=== PATIENT | male | born 1940 | race Hispanic/Latino ===

== ENCOUNTER 2018-10-11 10:09 | Inpatient (IN) | payer MEDICARE, OTHER ==
--- NOTE | 2018-10-11 11:03 | Emergency Department Report ---
ED Shortness of Breath HPI - General Chief Complaint: Dyspnea/Respdistress Stated Complaint: SENT BY Time Seen by Provider: 10/11/18 10:42 Source: patient, family, RN notes reviewed Mode of arrival: Ambulatory Limitations: No Limitations - History of Present Illness Initial Comments: 78-year-old male with no significant past medical history presents to the hospital for shortness of breath 1.5-2 months. Patient went to [place] event marketing specialist office for the first time today with these symptoms and was subsequently sent to the ER for admission for right pleural effusion and cardiac workup. Patient complains of occasional cough productive of clear sputum. He denies chest pain, fevers, smoking history, or unintentional weight loss. His primary care doctors affiliated with the [facility]. Patient was sent to the ER by Dr. Mccray, see his note. - Related Data Allergies Allergy/AdvReac Type Severity Reaction Status Date / Time No Known Allergies Allergy Verified 10/11/18 10:29 ED Review of Systems ROS: Stated complaint: SENT BY Other details as noted in HPI Comment: All other systems reviewed and negative ED Past Medical Hx - Past Medical History Previous Medical History?: No - Surgical History Past Surgical History?: No - Social History Smoking Status: Never Smoker Substance Use Type: Alcohol ED Physical Exam - General Limitations: No Limitations - Other Other exam information: General: No limitations, patient is alert in no acute distress Head exam: Atraumatic, normocephalic Eyes exam: Normal appearance ENT: Moist mucous membrane Neck exam: Normal inspection, full range of motion, no meningismus nontender Respiratory exam: Diminished breath sounds right base, no wheezes, rales, or crackles Cardiovascular: Normal rate and rhythm, diastolic murmur Abdomen: Soft, nondistended, and nontender, with normal bowel sounds, no reboun d, or guarding Extremity: Full range of motion normal inspection no deformity, bilateral 1+ pitting edema lower extremity Back: Normal Inspection, full range of motion, no tenderness Neurologic: Alert, oriented x3, cranial nerves intact, no motor or sensory deficit Psychiatric: normal affect, normal mood Skin: Warm, dry, intact ED Course Vital Signs 10/11/18 10/11/18 10:29 11:02 Temperature 97.7 F Pulse Rate 103 H 106 H Respiratory 16 17 Rate Blood Pressure 136/86 146/93 O2 Sat by Pulse 96 96 Oximetry ED Medical Decision Making - Lab Data Result diagrams: 10/11/18 10:53 10/11/18 10:53 Lab Results 10/11/18 10/11/18 10/11/18 Range/Units 10:53 10:53 10:53 WBC 7.4 (4.5-11.0) K/mm3 RBC 3.72 (3.65-5.03) M/mm3 Hgb 8.9 L (11.8-15.2) gm/dl Hct 29.3 L (35.5-45.6) % MCV 79 L (84-94) fl MCH 24 L (28-32) pg MCHC 30 L (32-34) % RDW 17.5 H (13.2-15.2) % Plt Count 320 (140-440) K/mm3 Lymph % (Auto) 15.4 (13.4-35.0) % [place] % (Auto) 10.3 H (0.0-7.3) % Eos % (Auto) 1.3 (0.0-4.3) % Baso % (Auto) 1.1 (0.0-1.8) % Lymph # 1.1 L (1.2-5.4) K/mm3 [place] # 0.8 (0.0-0.8) K/mm3 Eos # 0.1 (0.0-0.4) K/mm3 Baso # 0.1 (0.0-0.1) K/mm3 Seg Neutrophils % 71.9 H (40.0-70.0) % Seg Neutrophils # 5.4 (1.8-7.7) K/mm3 PT 15.5 H (12.2-14.9) Sec. INR 1.16 H (0.87-1.13) APTT 32.4 (24.2-36.6) Sec. Sodium 141 (137-145) mmol/L Potassium 4.8 (3.6-5.0) mmol/L Chloride 107.2 H (98-107) mmol/L Carbon Dioxide 21 L (22-30) mmol/L Anion Gap 18 mmol/L BUN 18 (9-20) mg/dL Creatinine 1.1 (0.8-1.5) mg/dL Estimated GFR > 60 ml/min BUN/Creatinine Ratio 16 % Glucose 116 H (75-100) mg/dL Calcium 8.6 (8.4-10.2) mg/dL Total Bilirubin 0.70 (0.1-1.2) mg/dL AST 14 (5-40) units/L ALT 11 (7-56) units/L Alkaline Phosphatase 91 (35-129) units/L Total Creatine Kinase 76 (55-170) units/L CK-MB (CK-2) 2.3 (0.0-4.0) ng/mL CK-MB (CK-2) Rel Index 3.0 (0-4) Troponin T < 0.010 (0.00-0.029) ng/mL Total Protein 6.6 (6.3-8.2) g/dL Albumin 3.7 L (3.9-5) g/dL Albumin/Globulin Ratio 1.3 % TSH (0.270-4.200) mlU/mL Free T4 (0.76-1.46) ng/dL 10/11/18 Range/Units 10:53 WBC (4.5-11.0) K/mm3 RBC (3.65-5.03) M/mm3 Hgb (11.8-15.2) gm/dl Hct (35.5-45.6) % MCV (84-94) fl MCH (28-32) pg MCHC (32-34) % RDW (13.2-15.2) % Plt Count (140-440) K/mm3 Lymph % (Auto) (13.4-35.0) % [place] % (Auto) (0.0-7.3) % Eos % (Auto) (0.0-4.3) % Baso % (Auto) (0.0-1.8) % Lymph # (1.2-5.4) K/mm3 [place] # (0.0-0.8) K/mm3 Eos # (0.0-0.4) K/mm3 Baso # (0.0-0.1) K/mm3 Seg Neutrophils % (40.0-70.0) % Seg Neutrophils # (1.8-7.7) K/mm3 PT (12.2-14.9) Sec. INR (0.87-1.13) APTT (24.2-36.6) Sec. Sodium (137-145) mmol/L Potassium (3.6-5.0) mmol/L Chloride (98-107) mmol/L Carbon Dioxide (22-30) mmol/L Anion Gap mmol/L BUN (9-20) mg/dL Creatinine (0.8-1.5) mg/dL Estimated GFR ml/min BUN/Creatinine Ratio % Glucose (75-100) mg/dL Calcium (8.4-10.2) mg/dL Total Bilirubin (0.1-1.2) mg/dL AST (5-40) units/L ALT (7-56) units/L Alkaline Phosphatase (35-129) units/L Total Creatine Kinase (55-170) units/L CK-MB (CK-2) (0.0-4.0) ng/mL CK-MB (CK-2) Rel Index (0-4) Troponin T (0.00-0.029) ng/mL Total Protein (6.3-8.2) g/dL Albumin (3.9-5) g/dL Albumin/Globulin Ratio % TSH 1.630 (0.270-4.200) mlU/mL Free T4 1.37 (0.76-1.46) ng/dL - EKG Data -: EKG Interpreted by Mi EKG shows normal: sinus rhythm, axis (qrs 89), QRS complexes (qrsd 150), ST-T waves (right bundle-branch block, no ST elevation IN.) Rate: normal (99) - EKG Data When compared to previous EKG there are: previous EKG unavailable - Radiology Data Radiology results: report reviewed ROUTINE CHEST, TWO VIEWS: HISTORY: Shortness of breath. Mild cardiomegaly, small right pleural effusion and trace left pleural effusion are identified. The lungs are grossly clear otherwise. No pneumothorax. The bony structures are grossly intact. IMPRESSION: Mild CHF. - Medical Decision Making new right pleural effusion pt will be admitted for workup card consult ordered - Differential Diagnosis cancer, CHF, lung disease Critical Care Time: No Critical care attestation.: If time is entered above; I have spent that time in minutes in the direct care of this critically ill patient, excluding procedure time. ED Disposition Clinical Impression: Dyspnea, Pleural effusion on right, Anemia Disposition: OP ADMIT IP TO THIS HOSP Is pt being admited?: Yes Condition: Stable Time of Disposition: 11:52 (Dr Torres/hosp)
[2018-10-11 11:16] LABS: Basophils # (Auto) 0.1 K/mm3 (0.0-0.1); Basophils % (Auto) 1.1 % (0.0-1.8); Eosinophils # (Auto) 0.1 K/mm3 (0.0-0.4); Eosinophils % (Auto) 1.3 % (0.0-4.3); Hematocrit 29.3 % (35.5-45.6); Hemoglobin 8.9 gm/dl (11.8-15.2); Lymphocytes # (Auto) 1.1 K/mm3 (1.2-5.4); Lymphocytes % (Auto) 15.4 % (13.4-35.0); Mean Corpuscular HGB Conc 30 % (32-34); Mean Corpuscular Volume 79 fl (84-94); Monocytes # (Auto) 0.8 K/mm3 (0.0-0.8); Monocytes % (Auto) 10.3 % (0.0-7.3); Platelet Count 320 K/mm3 (140-440); Red Blood Count 3.72 M/mm3 (3.65-5.03); Red Cell Distribution Width 17.5 % (13.2-15.2)
[2018-10-11 11:24] LABS: INR 1.16 (0.87-1.13); Partial Thromboplastin Time 32.4 Sec. (24.2-36.6)
[2018-10-11 11:28] LABS: Creatine Kinase MB 2.3 ng/mL (0.0-4.0)
[2018-10-11 11:29] LABS: Alanine Aminotransferase 11 units/L (7-56); Albumin 3.7 g/dL (3.9-5); BUN/Creatinine Ratio 16; Blood Urea Nitrogen 18 mg/dL (9-20); Calcium 8.6 mg/dL (8.4-10.2); Hemolysis Index 7
--- NOTE | 2018-10-11 11:29 | XRay Report ---
ROUTINE CHEST, TWO VIEWS: HISTORY: Shortness of breath. Mild cardiomegaly, small right pleural effusion and trace left pleural effusion are identified. The lungs are grossly clear otherwise. No pneumothorax. The bony structures are grossly intact. IMPRESSION: Mild CHF.
[2018-10-11 11:45] LABS: Free T4 (Free Thyroxine) 1.37 ng/dL (0.76-1.46)
--- NOTE | 2018-10-11 12:49 | History and Physical Report ---
History of Present Illness Chief complaint: i cant breathe, and im just weak History of present illness: 78 YO Male with Obesity and No PMH presents to ED for evaluation. Pt states that he has experienced shortness of breath over the past 2 months with increasing symptoms over the past 1 week. Pt acknowledges Orthopnea/PND, Decreased exercise tolerance, leg edema, Dypsnea on exertion, Dypsnea at rest. Pt was seen and evaluated in his [facility]'s office today, and was instructed to seek further care at [facility]. Pt seen and evaluated in ED and found to have symptoms consistent with CHF Decompensation, and well as Pleural Effusion. Pt admitted to telemetry, and initiated on CHF protocol. Cardiology consulted in ED. Pt denies fever, chills, CP, Palpitations, NVD, Trauma, Unilateral leg swelling, hemoptysis, prolonged travel/immobility, individual/family history of DVT/PE/Blood Clotting Disorders. No previous Admission. No Previous medication to reconcile. Past History Past Medical History: No medical history, other (reviewed) Past Surgical History: No surgical history, Other (reviewed) Social history: single Family history: no significant family history (reviewed) Medications and Allergies Allergies Allergy/AdvReac Type Severity Reaction Status Date / Time No Known Allergies Allergy Verified 10/11/18 12:56 Home Medications Medication Instructions Recorded Confirmed Last Taken Type No Known Home Medications [No 10/11/18 10/11/18 Unknown History Reported Home Medications] Review of Systems Constitutional: no weight loss, no weight gain, no fever, no chills Ears, nose, mouth and throat: no ear pain, no ear discharge, no tinnitis, no decreased hearing, no nose pain, no nasal congestion Cardiovascular: orthopnea, shortness of breath, dyspnea on exertion, paroxysmal nocturnal dyspnea, leg edema, decreased exercise tolerance, no chest pain, no palpitations, no rapid/irregular heart beat Respiratory: no cough, no cough with sputum, no excessive sputum, no hemoptysis Gastrointestinal: no nausea, no vomiting, no diarrhea, no constipation Genitourinary Male: no hematuria, no flank pain, no discharge, no urinary frequency, no urinary hesitancy Rectal: no pain, no incontinence, no bleeding Musculoskeletal: no neck pain, no shooting arm pain, no arm numbness/tingling, no low back pain, no shooting leg pain Integumentary: no rash, no pruritis, no redness, no sores, no wounds Neurological: no transient paralysis, no paralysis, no weakness, no parathesias, no numbness, no tingling Psychiatric: no anxiety, no memory loss, no change in sleep habits, no sleep disturbances, no insomnia, no hypersomnia Endocrine: no cold intolerance, no heat intolerance, no polyphagia, no excessive thirst, no polydipsia Hematologic/Lymphatic: no easy bruising, no easy bleeding Allergic/Immunologic: no urticaria, no allergic rhinitis, no wheezing Exam - Constitutional Vitals: Temp Pulse Resp BP Pulse Ox 97.7 F 106 H 20 146/93 98 10/11/18 10:29 10/11/18 11:02 10/11/18 11:02 10/11/18 11:02 10/11/18 11:02 General appearance: Present: mild distress - EENT Eyes: Present: PERRL ENT: hearing intact, clear oral mucosa - Neck Neck: Present: supple, normal ROM - Respiratory Respiratory effort: normal Respiratory: bilateral: diminished, rhonchi - Cardiovascular Heart Sounds: Present: S1 & S2. Absent: rub, click - Extremities Extremity abnormal: edema Peripheral Pulses: within normal limits - Abdominal General gastrointestinal: Present: soft, non-tender, non-distended, normal bowel sounds Male genitourinary: Present: normal - Integumentary Integumentary: Present: clear, warm, dry - Musculoskeletal Musculoskeletal: gait normal, strength equal bilaterally - Psychiatric Psychiatric: appropriate mood/affect, intact judgment & insight - Neurologic Neurologic: CNII-XII intact, moves all extremities Results - Labs CBC & Chem 7: 10/11/18 10:53 10/11/18 10:53 Labs: Abnormal lab results 10/11/18 10/11/18 10/11/18 Range/Units 10:53 10:53 10:53 Hgb 8.9 L (11.8-15.2) gm/dl Hct 29.3 L (35.5-45.6) % MCV 79 L (84-94) fl MCH 24 L (28-32) pg MCHC 30 L (32-34) % RDW 17.5 H (13.2-15.2) % [place] % (Auto) 10.3 H (0.0-7.3) % Lymph # 1.1 L (1.2-5.4) K/mm3 Seg Neutrophils % 71.9 H (40.0-70.0) % PT 15.5 H (12.2-14.9) Sec. INR 1.16 H (0.87-1.13) Chloride 107.2 H (98-107) mmol/L Carbon Dioxide 21 L (22-30) mmol/L Glucose 116 H (75-100) mg/dL Albumin 3.7 L (3.9-5) g/dL Assessment and Plan - Patient Problems (1) CHF (congestive heart failure) Current Visit: Yes Status: Acute Qualifiers: Heart failure type: systolic Heart failure chronicity: acute Qualified Code(s): I50.21 - Acute systolic (congestive) heart failure Plan to address problem: Admit to Telemetry: CHF Protocol: Strict I/O, BNP, D dimer, CTA Chest, daily weight, diuresis, chest x ray, serial cardiac enzymes, serial ekg, thyroid pane l, monitor uop q shift, afterload reduction, cardiology consulted in ED. (2) Crohns disease Current Visit: Yes Status: Acute Qualifiers: Digestive disease complication type: without complication Plan to address problem: No active symptoms at this time, Pt not currently taking medication. (3) Agitation Current Visit: Yes Status: Acute Plan to address problem: Ativan prn, supportive care. (4) Pleural effusion on right Current Visit: Yes Status: Acute Plan to address problem: Diuresis, CT chest, Right lateral decubitus chest x ray in AM to monitor for improvement with diuresis, and treatment of CHF. (5) DVT prophylaxis Current Visit: Yes Status: Acute Plan to address problem: SCD to BLE while in bed.
[2018-10-11] MEDS ORDERED: PROVENTIL IH PRN (12:52)
[2018-10-11] MEDS ORDERED: SODIUM CHLORIDE FLUSH SYRINGE 10 ML IV PRN ×2 (12:52)
[2018-10-11] MEDS ORDERED: MORPHINE IV PRN (12:52)
[2018-10-11] MEDS ORDERED: BABY ASPIRIN PO STA (12:52)
[2018-10-11] MEDS ORDERED: NITROSTAT SL PRN (12:52)
[2018-10-11] MEDS ORDERED: TYLENOL PO PRN (12:52)
[2018-10-11] MEDS ORDERED: ZOFRAN IV PRN (12:52)
[2018-10-11 13:29] LABS: Chol/HDL Ratio 3.75 %
--- NOTE | 2018-10-11 14:24 | Event Note ---
Date: 10/11/18 See office note for consult details. Patient is admitted with SOB, Echo in office shows a severe dilated CM, EF 20%, at least mild-moderate . Chest XRay and BNP levels consistent with decompensated HF. A small L pleural effusion is probably due to HF. Recommendation: Diurese, afterload reduction, ASA, betablockers when HF compensated. Right/Left heart cath Sunday.
--- NOTE | 2018-10-11 17:24 | Cat Scan Report ---
PROCEDURE: CT angiogram chest with contrast. TECHNIQUE: Computerized tomographic angiography of the chest was performed after the IV injection of iodinated nonionic contrast including image processing. The image data was postprocessed using 2-di mensional multiplanar reformatted (MPR) and 3-dimensional (MIP and/or volume rendered) techniques. Au tomated exposure control, adjustment of mA and/or kV according to patient size, or iterative reconstr uction dose optimization techniques were utilized. CT DOSE LENGTH PRODUCT: Not provided mGycm HISTORY: Chest pain. COMPARISONS: None. FINDINGS: The trachea and central bronchi appear normal. There is a small amount of compressive subsegmental at electasis in the dependent portions of both lower lobes. The lungs are otherwise clear and well expan ded. There is a large right pleural effusion and a moderate size left pleural effusion. The thoracic aorta has a normal caliber without evidence of dissection. There is some atherosclerotic calcificatio n scattered in the thoracic aorta. The pulmonary arteries enhance normally. There are no filling defe cts to indicate pulmonary embolism. There is no mediastinal adenopathy. The heart size is normal. The adrenal glands are not enlarged. The thoracic skeleton appears intact. There is a moderate sized hia yusra hernia. IMPRESSION: No evidence of pulmonary embolism. Large right pleural effusion and moderate-sized left pleural effusion. Hiatal hernia. This document is electronically signed by Emmanuel Parod MD., October 11 2018 05:22:06 PM ET
[2018-10-11] MEDS: NITRO-BID 2% TP SCH (17:50)
[2018-10-11] MEDS: LASIX IV SCH (17:50)
[2018-10-11] MEDS: ZESTRIL PO SCH (18:07)
[2018-10-11] MEDS: ALDACTONE PO SCH (18:07)
[2018-10-11] MEDS ORDERED: ATIVAN IV ONE (21:03)
[2018-10-11] MEDS ORDERED: ATIVAN PO PRN (21:05)
[2018-10-11] MEDS: SODIUM CHLORIDE FLUSH SYRINGE 10 ML IV SCH (22:52)
[2018-10-12] MEDS: LASIX IV SCH ×2 (05:59→17:51)
[2018-10-12] MEDS: NITRO-BID 2% TP SCH ×4 (06:00→17:51)
[2018-10-12 06:17] LABS: BUN/Creatinine Ratio 15; Blood Urea Nitrogen 17 mg/dL (9-20); Calcium 8.4 mg/dL (8.4-10.2); Hemolysis Index 1
[2018-10-12] MEDS: ALDACTONE PO SCH (09:49)
[2018-10-12] MEDS: COREG PO SCH ×2 (09:50→21:49)
[2018-10-12] MEDS: BABY ASPIRIN PO SCH (09:50)
[2018-10-12] MEDS: ZESTRIL PO SCH (09:56)
[2018-10-12] MEDS: SODIUM CHLORIDE FLUSH SYRINGE 10 ML IV SCH ×2 (09:56→21:49)
--- NOTE | 2018-10-12 10:06 | XRay Report ---
PROCEDURE: XR CHEST 1V AP TECHNIQUE: Chest radiograph, portable AP view. HISTORY: pleural effusion COMPARISONS: None currently available. FINDINGS: Mild cardiomegaly. Aortic calcifications. Prominent bilateral pulmonary markings with perihilar airspace opacities. Slightly blunted bilateral costophrenic angles. Ill-defined opacity in the right infrahilar region and left lower lobe. No pneum othorax. There are no suspicious osseous lesions. IMPRESSION: * Cardiomegaly and pulmonary findings suggest pulmonary vascular congestion with edema particularly in the right middle and left lower lobes. Differential diagnosis includes pneumonia and acute pneumon itis. * Small to moderate bilateral pleural effusions. This document is electronically signed by Kevin Keller MD., October 12 2018 10:04:33 AM ET
--- NOTE | 2018-10-12 10:53 | Progress Note ---
Assessment and Plan 1. Acute systolic heart failure. 2. Dilated cardiomyopathy left ventricular ejection fraction of 20% 3. Moderate aortic stenosis [caution of over estimation of aortic stenosis secondary to low stroke for] Plan. Currently stable scheduled for a right and left heart cath on Sunday Subjective Date of service: 10/12/18 Interval history: No cardiac symptoms Objective Vital Signs Temp Pulse Resp BP BP Pulse Ox 10/12/18 09:33 125/76 10/12/18 06:00 101 H 131/87 10/12/18 04:52 88 10/12/18 04:22 98.1 F 101 H 18 131/87 92 10/11/18 23:49 98.2 F 96 H 18 118/74 99 10/11/18 23:05 108 H 10/11/18 19:44 98.1 F 104 H 18 114/76 99 10/11/18 17:19 98 H 118/67 10/11/18 16:21 100 H 20 133/80 98 10/11/18 16:11 109 H 23 133/80 88 10/11/18 16:01 103 H 25 H 133/80 96 10/11/18 15:01 101 H 12 133/80 97 10/11/18 14:00 103 H 18 133/80 99 10/11/18 13:00 95 H 11 L 125/86 96 10/11/18 12:00 94 H 26 H 133/90 97 10/11/18 11:02 106 H 17 146/93 96 - Physical Examination General: Appears Well, No Apparent Distress HEENT: Positive: PERRL, Mucus Membranes Moist Neck: Positive: neck supple, trachea midline. Negative: JVD/HJR Cardiac: Positive: Regular Rate, S1/S2, S3, Systolic Murmur, PMI, Dilated, Laterally Displaced Lungs: Positive: clear to auscultation, No Wheeze, Rales, Rhonchi Neuro: Positive: Grossly Intact Abdomen: Positive: Unremarkable, Soft Extremities: Absent: edema - Labs and Meds Cardiac Enzymes 10/11/18 Range/Units 10:53 AST 14 (5-40) units/L CK-MB (CK-2) 2.3 (0.0-4.0) ng/mL Coagulation 10/11/18 Range/Units 10:53 PT 15.5 H (12.2-14.9) Sec. INR 1.16 H (0.87-1.13) APTT 32.4 (24.2-36.6) Sec. Lipids 10/11/18 Range/Units 10:53 Triglycerides 64 (2-149) mg/dL Cholesterol 109 (50-199) mg/dL HDL Cholesterol 29 L (40-59) mg/dL Cholesterol/HDL Ratio 3.75 % CBC 10/11/18 Range/Units 10:53 WBC 7.4 (4.5-11.0) K/mm3 RBC 3.72 (3.65-5.03) M/mm3 Hgb 8.9 L (11.8-15.2) gm/dl Hct 29.3 L (35.5-45.6) % Plt Count 320 (140-440) K/mm3 Lymph # 1.1 L (1.2-5.4) K/mm3 [place] # 0.8 (0.0-0.8) K/mm3 Eos # 0.1 (0.0-0.4) K/mm3 Baso # 0.1 (0.0-0.1) K/mm3 Comprehensive Metabolic Panel 10/11/18 10/12/18 Range/Units 10:53 04:39 Sodium 141 141 (137-145) mmol/L Potassium 4.8 4.0 (3.6-5.0) mmol/L Chloride 107.2 H 106.0 (98-107) mmol/L Carbon Dioxide 21 L 22 (22-30) mmol/L BUN 18 17 (9-20) mg/dL Creatinine 1.1 1.1 (0.8-1.5) mg/dL Glucose 116 H 94 (75-100) mg/dL Calcium 8.6 8.4 (8.4-10.2) mg/dL AST 14 (5-40) units/L ALT 11 (7-56) units/L Alkaline Phosphatase 91 (35-129) units/L Total Protein 6.6 (6.3-8.2) g/dL Albumin 3.7 L (3.9-5) g/dL - Telemetry EKG Rhythm: Sinus Rhythm
--- NOTE | 2018-10-12 16:38 | Progress Note ---
Assessment and Plan / Acute systolic heart failure. Admited to Telemetry: CHF Protocol: Strict I/O, daily weight, diuresis, serial cardiac enzymes, serial ekg, monitor uop q shift, afterload reduction, cardiology consulted in ED. 2d echo showed Ef 15-20% / Dilated cardiomyopathy left ventricular ejection fraction of 15- 20% - planned for cardiac cath on Sunday /Moderate aortic stenosis, will follow cardiology recommendation /b/l pleural effusion - will follow clinically, cont diuresis for now / Obesity, lifestyle modification when medically stable / DVT prophylaxis SCD to BLE while in bed. Brief History: 78-year-old male with no significant past medical history presents to the hospital for shortness of breath 1.5-2 months. Patient went to [place] vessel specialist office for the first time with these symptoms and was subsequently sent to the ER by Dr Mccray for admission for right pleural effusion and cardiac workup. His EF is 15-20%, planned for cardiac cath on Sunday. Radiological data: CTA chest: No evidence of pulmonary embolism. Large right pleural effusion and moderate-sized left pleural effusion. Hiatal hernia. CXR: Cardiomegaly and pulmonary findings suggest pulmonary vascular congestion with edema particularly in the right middle and left lower lobes. Differential diagnosis includes pneumonia andacute pneumonitis. * Small to moderate bilateral pleural effusions. Subjective Date of service: 10/12/18 Interval history: Patient seen and examined c/o SOB with minimal exertion Denies chest pain, family at bedside updated Objective - Constitutional Vitals: Vital Signs - 12hr 10/12/18 10/12/18 10/12/18 04:52 06:00 09:33 Temperature Pulse Rate 88 101 H Respiratory Rate Blood Pressure 131/87 125/76 O2 Sat by Pulse Oximetry 10/12/18 12:17 Temperature 98.6 F Pulse Rate 86 Respiratory 18 Rate Blood Pressure 108/58 O2 Sat by Pulse 98 Oximetry General appearance: Present: no acute distress, obese - EENT Eyes: PERRL, EOM intact ENT: hearing intact, clear oral mucosa Ears: bilateral: normal - Neck Neck: supple, normal ROM - Respiratory Respiratory effort: normal Respiratory: bilateral: rales - Cardiovascular Rhythm: regular Heart Sounds: Present: S1 & S2. Absent: gallop, rub Extremities: pulses intact, normal color, Full ROM Extremity abnormal: edema - Gastrointestinal General gastrointestinal: Present: soft, non-tender, non-distended, normal bowel sounds - Integumentary Integumentary: clear, warm, dry - Musculoskeletal Musculoskeletal: 1, strength equal bilaterally - Neurologic Neurologic: moves all extremities - Psychiatric Psychiatric: memory intact, appropriate mood/affect, intact judgment & insight - Labs CBC & Chem 7: 10/13/18 04:59 10/12/18 04:39
[2018-10-13] MEDS: NITRO-BID 2% TP SCH ×4 (05:11→18:59)
[2018-10-13] MEDS: LASIX IV SCH ×2 (05:11→18:59)
[2018-10-13 06:06] LABS: Hematocrit 25.7 % (35.5-45.6)
--- NOTE | 2018-10-13 12:00 | Progress Note ---
Assessment and Plan 1. Acute systolic heart failure. 2. Dilated cardiomyopathy left ventricular ejection fraction of 20% 3. Moderate aortic stenosis [caution of over estimation of aortic stenosis secondary to low stroke for] Plan. Currently stable scheduled for a right and left heart cath on Sunday Subjective Date of service: 10/13/18 Interval history: No cardiac symptoms Objective Vital Signs Temp Pulse Resp BP Pulse Ox 10/13/18 08:25 83 18 98/52 97 10/13/18 08:24 97.4 F L 10/13/18 07:00 82 10/13/18 05:11 88 105/66 10/13/18 04:13 98.0 F 88 18 105/66 96 10/13/18 00:11 98.0 F 82 18 95/56 93 10/12/18 23:00 85 10/12/18 21:49 83 109/59 10/12/18 20:13 98 10/12/18 19:55 98.0 F 83 20 109/59 98 10/12/18 16:36 98 H 121/80 100 10/12/18 12:17 98.6 F 86 18 108/58 98 - Physical Examination General: Appears Well, No Apparent Distress HEENT: Positive: PERRL, Mucus Membranes Moist Neck: Positive: neck supple, trachea midline. Negative: JVD/HJR Cardiac: Positive: Regular Rate, S1/S2, Systolic Murmur, PMI, Dilated, Laterally Displaced Lungs: Positive: clear to auscultation, No Wheeze, Rales, Rhonchi Neuro: Positive: Grossly Intact Abdomen: Positive: Unremarkable, Soft Extremities: Absent: edema - Labs and Meds CBC 10/13/18 Range/Units 04:59 Hgb 8.0 L (11.8-15.2) gm/dl Hct 25.7 L (35.5-45.6) %
[2018-10-13] MEDS: ZESTRIL PO SCH (12:52)
[2018-10-13] MEDS: ALDACTONE PO SCH (12:52)
[2018-10-13] MEDS: COREG PO SCH ×2 (12:53→21:08)
[2018-10-13] MEDS: SODIUM CHLORIDE FLUSH SYRINGE 10 ML IV SCH ×2 (12:54→21:08)
[2018-10-13] MEDS: BABY ASPIRIN PO SCH (12:54)
--- NOTE | 2018-10-13 13:44 | Progress Note ---
Assessment and Plan / Acute systolic heart failure. Admited to Telemetry with CHF Protocol: Strict I/O, daily weight, diuresis, serial cardiac enzymes, serial ekg, monitor uop q shift, afterload reduction, cardiology consulted in ED. 2d echo showed Ef 15-20% / Dilated cardiomyopathy left ventricular ejection fraction of 15- 20% - planned for cardiac cath on Sunday /Moderate aortic stenosis, will follow cardiology recommendation /b/l pleural effusion - will follow clinically, cont diuresis for now / Obesity, lifestyle modification when medically stable / DVT prophylaxis SCD to BLE while in bed. Brief History: 78-year-old male with no significant past medical history presents to the hospital for shortness of breath 1.5-2 months. Patient went to [place] [facility] office for the first time with these symptoms and was subsequently sent to the ER by Dr Mccray for admission for right pleural effusion and cardiac workup. His EF is 15-20%, planned for cardiac cath on Sunday. Radiological data: CTA chest: No evidence of pulmonary embolism. Large right pleural effusion and moderate-sized left pleural effusion. Hiatal hernia. CXR: Cardiomegaly and pulmonary findings suggest pulmonary vascular congestion with edema particularly in the right middle and left lower lobes. Differential diagnosis includes pneumonia andacute pneumonitis. * Small to moderate bilateral pleural effusions. Subjective Date of service: 10/13/18 Interval history: Patient seen and examined c/o SOB with minimal exertion Denies chest pain, family at bedside updated Objective - Exam Narrative Exam: General appearance: Present: no acute distress, obese - EENT Eyes: PERRL, EOM intact ENT: hearing intact, clear oral mucosa Ears: bilateral: normal - Neck Neck: supple, normal ROM - Respiratory Respiratory effort: normal Respiratory: bilateral: rales - Cardiovascular Rhythm: regular Heart Sounds: Present: S1 & S2. Absent: gallop, rub Extremities: pulses intact, normal color, Full ROM Extremity abnormal: edema - Gastrointestinal General gastrointestinal: Present: soft, non-tender, non-distended, normal bowel sounds - Integumentary Integumentary: clear, warm, dry - Musculoskeletal Musculoskeletal: 1, strength equal bilaterally - Neurologic Neurologic: moves all extremities - Psychiatric Psychiatric: memory intact, appropriate mood/affect, intact judgment & insight - Constitutional Vitals: Vital Signs - 12hr 10/13/18 10/13/18 10/13/18 04:13 05:11 07:00 Temperature 98.0 F Pulse Rate 88 88 82 Respiratory 18 Rate Blood Pressure 105/66 105/66 O2 Sat by Pulse 96 Oximetry 10/13/18 10/13/18 10/13/18 08:24 08:25 12:52 Temperature 97.4 F L Pulse Rate 83 91 H Respiratory 18 Rate Blood Pressure 98/52 98/55 O2 Sat by Pulse 97 Oximetry 10/13/18 12:53 Temperature Pulse Rate 92 H Respiratory Rate Blood Pressure 98/55 O2 Sat by Pulse Oximetry - Labs CBC & Chem 7: 10/13/18 04:59 10/12/18 04:39 Labs: Abnormal lab results 10/13/18 Range/Units 04:59 Hgb 8.0 L (11.8-15.2) gm/dl Hct 25.7 L (35.5-45.6) %
[2018-10-13] MEDS ORDERED: NACL 0.9% 500 ML 500 ML IV SCH (15:00)
[2018-10-14] MEDS: LASIX IV SCH (06:12)
[2018-10-14] MEDS ORDERED: FLAGYL 500 MG/100 ML 0 MG/0 ML BAG IV ONE (06:17)
[2018-10-14] MEDS: NITRO-BID 2% TP SCH ×3 (08:46→21:47)
[2018-10-14] MEDS: ALDACTONE PO SCH ×2 (08:47→21:46)
[2018-10-14] MEDS: BABY ASPIRIN PO SCH ×2 (08:47→20:32)
[2018-10-14] MEDS: COREG PO SCH ×3 (08:49→21:46)
[2018-10-14] MEDS ORDERED: NACL 0.9% 500 ML 500 ML ONE (09:25)
[2018-10-14] MEDS ORDERED: NITROGLYCERIN SYRINGE 0 ML ONE (09:28)
[2018-10-14] MEDS ORDERED: HEPARIN/NS 5000 UNIT/500ML(CATH LAB) 1,000 ML IR ONE (09:28)
[2018-10-14] MEDS ORDERED: HEPARIN 10,000 UNITS/10 ML ONE (09:28)
[2018-10-14] MEDS: XYLOCAINE 2% INFILTRATI ONE ×2 (09:56→10:08)
[2018-10-14] MEDS: VERSED ONE ×2 (09:56→10:07)
[2018-10-14] MEDS: SUBLIMAZE ONE ×2 (09:56→10:07)
[2018-10-14] MEDS: ZESTRIL PO SCH (10:33)
--- NOTE | 2018-10-14 12:39 | Cardiac Catherization Report ---
This is a right and left heart catheterization report. REASON FOR PROCEDURE: The patient is a 78-year-old man who developed progressive shortness of breath and exertional fatigue over several days. He was admitted to the hospital with new onset, decompensated heart failure. His chest x-ray and echocardiogram demonstrated a severe dilated cardiomyopathy with pulmonary edema and bilateral pleural effusions. After several days of optimal heart failure management, his symptoms have improved and he is referred for a right and left heart catheterization. Additional findings on the echocardiogram included calcific aortic stenosis. PROCEDURE: 1. Right heart catheterization. 2. Left heart catheterization. 3. Selective left and right coronary angiography. 4. Left ventricle angiography. 5. Sedation time stat 10:07, end 10:35. The patient was prepped and draped in a sterile fashion after informed consent. The right femoral artery and vein were both entered using Seldinger technique. A 6-Cymraes sheath was inserted into the artery and then an 8-Cymraes sheath in the vein. A Riverside-Rhonda catheter was then advanced to the pulmonary artery position. A pigtail catheter was advanced into the left ventricle. Cardiac output was measured using the thermodilution method. Simultaneous right and left heart filling pressures were then measured, following which the Riverside-Rhonda catheter was withdrawn and right heart pressures recorded on pullback. A transaortic gradient was then measured and recorded using the dual lumen pigtail catheter. Left ventricle angiography was then performed following which the dual lumen pigtail was withdrawn and we then performed selective left and right coronary angiography using #4 left and right Pavan catheters. The catheters were then withdrawn, sheath removed and hemostasis achieved using an Angio-Seal device on the arterial side, and manual compression on the venous site. The patient tolerated the procedure well and there were no complications. He was returned to the postprocedure unit in stable condition. FINDINGS: HEMODYNAMICS: The mean right atrial pressure was 8. Right ventricular pressure 25/10. Pulmonary artery pressure 25/15. The mean pulmonary artery wedge pressure was 15. Left ventricular end-diastolic pressure was 15-18. Ascending aortic pressure was 89/50. There was no significant pressure gradient on pullback across the aortic valve. Cardiac output was 5.27 liters per minute. CORONARY ANGIOGRAPHY: There was severe, heavy calcification involving the left main and the proximal to mid left anterior descending artery. The left main contained diffuse atherosclerosis with up to 30-50% luminal narrowing of its mid segment. There was diffuse moderate to severe atherosclerosis and narrowing of the proximal to mid LAD extending from its ostium. Following this, there was another focal 70-80% stenosis of the mid to distal LAD. A medium sized ramus intermedius artery contained a long, 80% stenosis extending from its ostium. The circumflex artery contained a 70-80% stenosis of its mid segment, just after the origin of the mid obtuse marginal. This was followed by another 60-70% stenosis of the distal circumflex leading to a medium sized terminal obtuse marginal. The right coronary artery was a large dominant vessel that was completely occluded in its mid segment. This was a short segment of a chronic total occlusion. There was heavy collateralization of the right coronary artery, including distal branches and the AV groove segment, by collaterals from the left coronary system. The left ventricle was severely dilated, there was severe diffuse left ventricular systolic dysfunction, ejection fraction estimated at less than 15-20%. Simultaneous pressures across the aortic valve using the dual lumen pigtail catheter demonstrated minimal to no significant transaortic gradient. CONCLUSION: 1. Normal right and left heart filling pressures, high normal pulmonary artery pressures. 2. Minimal to no significant transaortic gradient, no demonstrable significant aortic stenosis. 3. 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 4. Severe dilated cardiomyopathy with diffuse hypokinesis, ejection fraction less than 15-20%. RECOMMENDATION: The patient will be considered for a myocardial viability study, as a guide to further surgical or limited percutaneous revascularization. JOB# [id number] REBECCA/NTS
--- NOTE | 2018-10-14 12:57 | Event Note ---
Date: 10/14/18 Cardiac catheterization completed, findings: Normal right and left heart filling pressures, normal pulmonary artery pressures. Minimal to no significant aortic stenosis. Multivessel coronary artery disease. Severe dilated nonischemic cardiomyopathy, ejection fraction less than 15-20%. Recommendations: We will continue medical therapy for heart failure and systolic LVentricular dysfunction. Order a LifeVest in anticipation of discharge in the next 24-48 hours. We will contemplate revascularization options as outpatient, based on left ventricle viability assessment.
[2018-10-14] MEDS ORDERED: NACL 0.9% 1000 ML 1,000 ML IV SCH (13:00)
--- NOTE | 2018-10-14 14:37 | Progress Note ---
Assessment and Plan / Acute systolic heart failure. Admited to Telemetry with CHF Protocol: Strict I/O, daily weight, diuresis, serial cardiac enzymes, serial ekg, monitor uop q shift, afterload reduction, cardiology consulted in ED. 2d echo showed Ef 15-20% / Dilated cardiomyopathy left ventricular ejection fraction of 15- 20% - s/p cardiac cath on today showed Multivessel coronary artery disease. Severe dilated nonischemic cardiomyopathy, ejection fraction less than 15-20%. recommended outpt followup and lifevest on discharge /Moderate aortic stenosis, will follow cardiology recommendation /b/l pleural effusion - will follow clinically, cont diuresis for now, monitor BMP / Obesity, lifestyle modification when medically stable / DVT prophylaxis SCD to BLE while in bed. Brief History: 78-year-old male with no significant past medical history presents to the hospital for shortness of breath 1.5-2 months. Patient went to [place] [facility] office for the first time with these symptoms and was subsequently sent to the ER by Dr Mccray for admission for right pleural effusion and cardiac workup. His EF is 15-20%, s/p cardiac cath today. Need lifevest on d/c Radiological data: CTA chest: No evidence of pulmonary embolism. Large right pleural effusion and moderate-sized left pleural effusion. Hiatal hernia. CXR: Cardiomegaly and pulmonary findings suggest pulmonary vascular congestion with edema particularly in the right middle and left lower lobes. Differential diagnosis includes pneumonia andacute pneumonitis. * Small to moderate bilateral pleural effusions. Subjective Date of service: 10/14/18 Interval history: Patient seen and examined Denies chest pain, family at bedside updated S/p cardiac cath today Objective - Exam Narrative Exam: General appearance: Present: no acute distress, obese - EENT Eyes: PERRL, EOM intact ENT: hearing intact, clear oral mucosa Ears: bilateral: normal - Neck Neck: supple, normal ROM - Respiratory Respiratory effort: normal Respiratory: bilateral: rales - Cardiovascular Rhythm: regular Heart Sounds: Present: S1 & S2. Absent: gallop, rub Extremities: pulses intact, normal color, Full ROM Extremity abnormal: edema - Gastrointestinal General gastrointestinal: Present: soft, non-tender, non-distended, normal bowel sounds - Integumentary Integumentary: clear, warm, dry - Musculoskeletal Musculoskeletal: 1, strength equal bilaterally - Neurologic Neurologic: moves all extremities - Psychiatric Psychiatric: memory intact, appropriate mood/affect, intact judgment & insight - Constitutional Vitals: Vital Signs - 12hr 10/14/18 10/14/18 10/14/18 04:07 08:46 08:47 Temperature 97.7 F Pulse Rate 83 88 99 H Respiratory 17 Rate Blood Pressure 99/56 Blood Pressure [Left] O2 Sat by Pulse 95 Oximetry 10/14/18 10/14/18 08:49 12:38 Temperature 97.6 F Pulse Rate 88 80 Respiratory 18 Rate Blood Pressure Blood Pressure 100/53 [Left] O2 Sat by Pulse 98 Oximetry - Labs CBC & Chem 7: 10/13/18 04:59 10/12/18 04:39
[2018-10-14] MEDS: SODIUM CHLORIDE FLUSH SYRINGE 10 ML IV SCH ×2 (20:34→21:46)
[2018-10-14] MEDS: LASIX PO SCH (21:45)
[2018-10-15] MEDS: NITRO-BID 2% TP SCH ×3 (05:42→14:00)
[2018-10-15 06:02] LABS: Basophils # (Auto) 0.1 K/mm3 (0.0-0.1); Eosinophils # (Auto) 0.3 K/mm3 (0.0-0.4); Eosinophils % (Auto) 5.1 % (0.0-4.3); Monocytes % (Auto) 14.2 % (0.0-7.3)
[2018-10-15 06:23] LABS: Basophils % (Auto) 1.4 % (0.0-1.8); Hematocrit 30.4 % (35.5-45.6); Hemoglobin 9.4 gm/dl (11.8-15.2); Mean Corpuscular HGB Conc 31 % (32-34); Mean Corpuscular Volume 76 fl (84-94); Platelet Count 314 K/mm3 (140-440); Red Cell Distribution Width 17.2 % (13.2-15.2)
[2018-10-15 06:32] LABS: BUN/Creatinine Ratio 17; Blood Urea Nitrogen 17 mg/dL (9-20); Calcium 8.6 mg/dL (8.4-10.2); Hemolysis Index 9
[2018-10-15] MEDS: COREG PO SCH ×2 (10:15→21:12)
[2018-10-15] MEDS: ALDACTONE PO SCH (10:15)
[2018-10-15] MEDS: LASIX PO SCH (10:16)
[2018-10-15] MEDS: ZESTRIL PO SCH (10:17)
[2018-10-15] MEDS: SODIUM CHLORIDE FLUSH SYRINGE 10 ML IV SCH ×2 (10:25→21:09)
[2018-10-15] MEDS: BABY ASPIRIN PO SCH (10:25)
--- NOTE | 2018-10-15 10:58 | Progress Note ---
Assessment and Plan Acute systolic heart failure Right and left cardiac catheterization findings: Normal right and left heart filling pressures, normal pulmonary artery pressures. Minimal to no significant aortic stenosis. Multivessel coronary artery disease. Severe dilated nonischemic cardiomyopathy, ejection fraction less than 15- 20%. Recommendations: Continue medical therapy for heart failure and systolic LV dysfunction. Awaits lifevest placement. We will contemplate revascularization options as outpatient, based on left ventricle viability assessment. Patient advised to follow up as an outpatient within 3-5 days. Subjective Date of service: 10/15/18 Interval history: Patient has no complaints. Admits he is diuresing well. Awaits lifevest placement Objective Vital Signs Temp Pulse Resp BP BP Pulse Ox 10/15/18 10:17 88 87/52 10/15/18 10:16 88 87/52 10/15/18 10:15 88 87/52 10/15/18 07:57 98.1 F 88 16 87/52 96 10/15/18 04:12 97.7 F 83 16 86/42 98 10/14/18 23:06 98.8 F 93 H 12 90/46 99 10/14/18 22:38 97 10/14/18 19:48 98.1 F 90 16 94/56 97 10/14/18 17:46 99 H 18 108/61 99 10/14/18 17:45 98.0 F 10/14/18 16:00 96 10/14/18 12:38 97.6 F 80 18 100/53 98 - Physical Examination General: Appears Well, No Apparent Distress HEENT: Positive: PERRL Neck: Positive: trachea midline Cardiac: Positive: Reg Rate and Rhythm Lungs: Positive: Decreased Breath Sounds Neuro: Positive: Grossly Intact Extremities: Absent: edema - Labs and Meds CBC 10/15/18 Range/Units 05:44 WBC 6.7 (4.5-11.0) K/mm3 RBC 4.00 (3.65-5.03) M/mm3 Hgb 9.4 L (11.8-15.2) gm/dl Hct 30.4 L (35.5-45.6) % Plt Count 314 (140-440) K/mm3 Lymph # 1.0 L (1.2-5.4) K/mm3 [place] # 1.0 H (0.0-0.8) K/mm3 Eos # 0.3 (0.0-0.4) K/mm3 Baso # 0.1 (0.0-0.1) K/mm3 Comprehensive Metabolic Panel 10/15/18 Range/Units 05:44 Sodium 139 (137-145) mmol/L Potassium 3.8 (3.6-5.0) mmol/L Chloride 103.2 (98-107) mmol/L Carbon Dioxide 25 (22-30) mmol/L BUN 17 (9-20) mg/dL Creatinine 1.0 (0.8-1.5) mg/dL Glucose 93 (75-100) mg/dL Calcium 8.6 (8.4-10.2) mg/dL
--- NOTE | 2018-10-15 14:53 | Progress Note ---
Assessment and Plan Assessment and plan: 78-year-old male with no significant past medical history presents to the hospital for shortness of breath 1.5-2 months. Patient went to [place] [facility] specialist office for the first time with these symptoms and was subsequently sent to the ER by Dr Mccray for admission for right pleural effusion and cardiac workup. His EF is 15-20%, s/p cardiac cath . Need lifevest prior to d/c Acute systolic heart failure. Admited to Telemetry with CHF Protocol: Strict I/O, daily weight, diuresis, serial cardiac enzymes, serial ekg, monitor uop q shift, afterload reduction, cardiology following 2D echo showed EF 15-20% / Dilated cardiomyopathy left ventricular ejection fraction of 15- 20% - s/p cardiac cath showed Multivessel coronary artery disease. Severe dilated nonischemic cardiomyopathy, ejection fraction less than 15-20%. recommended outpt followup and lifevest prior to discharge /Moderate aortic stenosis, will follow cardiology recommendation /b/l pleural effusion - will follow clinically, cont diuresis for now, monitor BMP / Obesity, lifestyle modification when medically stable / Hypotension. Hold Lisinopril, Coreg Hopefully dc home tomorrow if BP stable and life vest fitted. History Interval history: Shortness of breath on exertion Hospitalist Physical - Physical exam Narrative exam: EN: Not in acute distress, lying in bed, ill looking HEENT: Normocephalic, atraumatic, Neck: supple, No JVD heart: S1 and S2 reg, no murmurs, rubs or gallop Lungs: Clear to auscultation bilaterally, no wheeze Abd:soft, non tender, non distended, normal bowel sounds Ext: No edema,no clubbing, no cyanosis, Neuro:Awake,alert,oriented X 3, no focal signs, moves all ext - Constitutional Vitals: Temp Pulse Resp BP Pulse Ox 98.0 F 87 16 87/43 98 10/15/18 13:16 10/15/18 13:16 10/15/18 13:16 10/15/18 13:16 10/15/18 13:16 General appearance: Present: no acute distress, obese Results - Labs CBC & Chem 7: 10/15/18 05:44 10/15/18 05:44 Labs: Laboratory Last Values WBC 6.7 K/mm3 (4.5-11.0) 10/15/18 05:44 RBC 4.00 M/mm3 (3.65-5.03) 10/15/18 05:44 Hgb 9.4 gm/dl (11.8-15.2) L 10/15/18 05:44 Hct 30.4 % (35.5-45.6) L 10/15/18 05:44 MCV 76 fl (84-94) L 10/15/18 05:44 MCH 24 pg (28-32) L 10/15/18 05:44 MCHC 31 % (32-34) L 10/15/18 05:44 RDW 17.2 % (13.2-15.2) H 10/15/18 05:44 Plt Count 314 K/mm3 (140-440) 10/15/18 05:44 Lymph % (Auto) 15.0 % (13.4-35.0) 10/15/18 05:44 [place] % (Auto) 14.2 % (0.0-7.3) H 10/15/18 05:44 Eos % (Auto) 5.1 % (0.0-4.3) H 10/15/18 05:44 Baso % (Auto) 1.4 % (0.0-1.8) 10/15/18 05:44 Lymph # 1.0 K/mm3 (1.2-5.4) L 10/15/18 05:44 [place] # 1.0 K/mm3 (0.0-0.8) H 10/15/18 05:44 Eos # 0.3 K/mm3 (0.0-0.4) 10/15/18 05:44 Baso # 0.1 K/mm3 (0.0-0.1) 10/15/18 05:44 Seg Neutrophils % 64.3 % (40.0-70.0) 10/15/18 05:44 Seg Neutrophils # 4.3 K/mm3 (1.8-7.7) 10/15/18 05:44 PT 15.5 Sec. (12.2-14.9) H 10/11/18 10:53 INR 1.16 (0.87-1.13) H 10/11/18 10:53 APTT 32.4 Sec. (24.2-36.6) 10/11/18 10:53 D-Dimer 444.11 ng/mlDDU (0-234) H 10/11/18 10:53 Sodium 139 mmol/L (137-145) 10/15/18 05:44 Potassium 3.8 mmol/L (3.6-5.0) 10/15/18 05:44 Chloride 103.2 mmol/L (98-107) 10/15/18 05:44 Carbon Dioxide 25 mmol/L (22-30) 10/15/18 05:44 Anion Gap 15 mmol/L 10/15/18 05:44 BUN 17 mg/dL (9-20) 10/15/18 05:44 Creatinine 1.0 mg/dL (0.8-1.5) 10/15/18 05:44 Estimated GFR > 60 ml/min 10/15/18 05:44 BUN/Creatinine Ratio 17 % 10/15/18 05:44 Glucose 93 mg/dL (75-100) 10/15/18 05:44 Calcium 8.6 mg/dL (8.4-10.2) 10/15/18 05:44 Total Bilirubin 0.70 mg/dL (0.1-1.2) 10/11/18 10:53 AST 14 units/L (5-40) 10/11/18 10:53 ALT 11 units/L (7-56) 10/11/18 10:53 Alkaline Phosphatase 91 units/L (35-129) 10/11/18 10:53 Total Creatine Kinase 76 units/L (55-170) 10/11/18 10:53 CK-MB (CK-2) 2.3 ng/mL (0.0-4.0) 10/11/18 10:53 CK-MB (CK-2) Rel Index 3.0 (0-4) 10/11/18 10:53 Troponin T < 0.010 ng/mL (0.00-0.029) 10/11/18 18:17 NT-Pro-B Natriuret Pep 5648 pg/mL (0-900) H 10/11/18 10:53 Total Protein 6.6 g/dL (6.3-8.2) 10/11/18 10:53 Albumin 3.7 g/dL (3.9-5) L 10/11/18 10:53 Albumin/Globulin Ratio 1.3 % 10/11/18 10:53 Triglycerides 64 mg/dL (2-149) 10/11/18 10:53 Cholesterol 109 mg/dL (50-199) 10/11/18 10:53 LDL Cholesterol Direct 74 mg/dL (50-130) 10/11/18 10:53 HDL Cholesterol 29 mg/dL (40-59) L 10/11/18 10:53 Cholesterol/HDL Ratio 3.75 % 10/11/18 10:53 TSH 1.630 mlU/mL (0.270-4.200) 10/11/18 10:53 Free T4 1.37 ng/dL (0.76-1.46) 10/11/18 10:53 Active Medications - Current Medications Current Medications: Generic Name Dose Route Start Last Admin Trade Name Freq PRN Reason Stop Dose Admin Acetaminophen 650 mg 10/11/18 12:52 Tylenol PO Q4H PRN Pain MILD(1-3)/Fever >100.5/GUSTAFSON Albuterol 2.5 mg 10/11/18 12:52 Proventil IH Q4HRT PRN Shortness Of Breath Aspirin 81 mg 10/12/18 10:00 10/15/18 10:25 Baby Aspirin PO 81 mg QDAY [facility] Administration Atorvastatin Calcium 40 mg 10/15/18 22:00 Lipitor PO QHS [facility] Carvedilol 6.25 mg 10/12/18 10:00 10/15/18 10:15 Coreg PO Not Given BID [facility] Enoxaparin Sodium 40 mg 10/15/18 22:00 Lovenox SUB-Q QDAY@2200 [facility] Furosemide 40 mg 10/14/18 13:00 10/15/18 10:16 Lasix PO Not Given QDAY [facility] Lisinopril 5 mg 10/11/18 15:00 10/15/18 10:17 Zestril PO Not Given QDAY [facility] Lorazepam 0.5 mg 10/11/18 21:05 10/12/18 21:49 Ativan PO 0.5 mg Q6H PRN Administration Agitation Morphine Sulfate 2 mg 10/11/18 12:52 Morphine IV Q4H PRN Pain, Moderate (4-6) Nitroglycerin 0.4 mg 10/11/18 12:52 Nitrostat SL Q5M PRN Chest Pain Nitroglycerin 1 inch 10/11/18 18:00 10/15/18 10:16 Nitro-Bid 2% TP Not Given QIDNTG [facility] Protocol Ondansetron HCl 4 mg 10/11/18 12:52 Zofran IV Q8H PRN Nausea And Vomiting Sodium Chloride 10 ml 10/11/18 22:00 10/15/18 10:25 Sodium Chloride Flush Syringe 10 Ml IV 10 ml BID NANCI Administration Sodium Chloride 10 ml 10/11/18 12:52 Sodium Chloride Flush Syringe 10 Ml IV PRN PRN LINE FLUSH Spironolactone 25 mg 10/11/18 15:00 10/15/18 10:15 Aldactone PO Not Given QDAY NANCI
[2018-10-15] MEDS ORDERED: LOVENOX SUB-Q SCH (22:00)
--- NOTE | 2018-10-16 10:34 | Discharge Summary ---
Providers - Providers Date of Admission: 10/11/18 12:52 Date of discharge: 10/16/18 Attending physician: RAFIA CRUMP 10/11/18 Consult to Cardiac Rehabilitation [CONS] Routine Reason For Exam: Phase I 10/11/18 11:56 Consult to Physician [CONS] Urgent Comment: Consulting Provider: NAYELY MCCRAY Physician Instructions: Reason For Exam: new chf, right pleural effusion 10/14/18 12:53 Consult to Cardiac Rehabilitation [CONS] Routine Reason For Exam: Cardiac Rehab Evaluation [facility] Condition: Fair Hospital course: Patient is 78 yo with no medical history presented with shortness of breath, leg edema. He was evaluated in Ed, diagnosed with acute respiratory failure due to acute CHF. patient was started on Lasix iv and admitted. he was evaluated by Cardiology. echo revealed EF 15-20%. Life vest was recommended, he was fitted and then discharged home on 10/16/18 to follow with cardiology as out patient. He was hypotensive so not discharged on KELBY or Beta eilse. These meds to be added as outpatient when BP allows Total time spent on discharge, 32 mins Disposition: DC-01 TO HOME OR SELFCARE - Discharge Diagnoses (1) Acute systolic (congestive) heart failure Status: Acute (2) Aortic stenosis Status: Acute (3) Cardiomyopathy Status: Acute (4) Acute respiratory failure Status: Acute (5) Pleural effusion on right Status: Acute Core Measure Documentation - Palliative Care Palliative Care/ Comfort Measures: Not Applicable - Core Measures Any of the following diagnoses?: heart failure - Heart Failure Discharge Requirements KELBY/ARB for LVSD if EF <40%: No Reason for no KELBY/ARB: Hypotension Beta elise at discharge: No Reason for no beta elise on DC: Hypotension Exam - Physical Exam Narrative exam: EN: Not in acute distress, lying in bed, ill looking HEENT: Normocephalic, atraumatic, Neck: supple, No JVD heart: S1 and S2 reg, no murmurs, rubs or gallop Lungs: Clear to auscultation bilaterally, no wheeze Abd:soft, non tender, non distended, normal bowel sounds Ext: No edema,no clubbing, no cyanosis, Neuro:Awake,alert,oriented X 3, no focal signs, moves all ext - Constitutional Vitals: Temp Pulse Resp BP Pulse Ox 98.6 F 92 H 16 105/58 96 10/16/18 08:37 10/16/18 08:37 10/16/18 08:37 10/16/18 08:37 10/16/18 08:50 Plan Activity: advance as tolerated Diet: low fat, low cholesterol, low salt Additional Instructions: 1.Follow up with PCP in 1 week. 2.Follow up with Dr. Mccray in 3-5 days. 3.Keep life vest on. 4.Coreg and Lisinopril to be resumed by cardiology when BP allows. Follow up with: NAYELY MCCRAY MD [Staff Physician] - 7 Days LENOX SARA ALVAREZ MD [Primary Care Provider] - 7 Days Prescriptions: Aspirin [Aspirin BABY CHEW TAB] 81 mg PO QDAY #30 tab.chew Furosemide [Lasix TAB] 40 mg PO QDAY #30 tablet AtorvaSTATin [Lipitor] 40 mg PO QHS #30 tablet
[2018-10-16] MEDS: ALDACTONE PO SCH (10:55)
[2018-10-16] MEDS: BABY ASPIRIN PO SCH (10:55)
[2018-10-16] MEDS: SODIUM CHLORIDE FLUSH SYRINGE 10 ML IV SCH (10:58)
[2018-10-16] MEDS: NITRO-BID 2% TP SCH ×3 (10:58→13:55)
--- NOTE | 2018-10-16 12:04 | Progress Note ---
Assessment and Plan Acute systolic heart failure Right and left cardiac catheterization findings: Normal right and left heart filling pressures, normal pulmonary artery pressures. Minimal to no significant aortic stenosis. Multivessel coronary artery disease. Severe dilated nonischemic cardiomyopathy, ejection fraction less than 15- 20%. Lifevest in place Recommendations: Beta blockers, diuretics, afterload reduction and aldactone held due to low blood pressure. Patient will be reassessed as an outpatient and medications will be resumed when his blood pressure allows. Stable cardiac werner for discharge home. Patient will follow up with Dr Mccray, October 18 at 210p. Subjective Date of service: 10/16/18 Interval history: Patient has no complaints. Lifevest is in place. Objective Vital Signs Temp Pulse Resp BP Pulse Ox 10/16/18 08:50 96 10/16/18 08:37 98.6 F 92 H 16 105/58 97 10/16/18 04:13 98.4 F 89 20 89/51 97 10/16/18 00:17 98.3 F 90 20 93/57 98 10/15/18 23:00 89 10/15/18 21:12 93 H 105/64 10/15/18 20:16 98.4 F 93 H 20 105/64 99 10/15/18 17:01 88 98 10/15/18 16:59 98.0 F 16 121/69 10/15/18 15:00 80 10/15/18 14:00 87 87/43 10/15/18 13:16 98.0 F 87 16 87/43 98 - Physical Examination General: No Apparent Distress HEENT: Positive: PERRL Neck: Positive: trachea midline Cardiac: Positive: Reg Rate and Rhythm Lungs: Positive: Decreased Breath Sounds Neuro: Positive: Grossly Intact Extremities: Absent: edema
[2018-10-16 13:31] VITALS: BP 114/66
== END 2018-10-16 14:25 | disposition home or self-care (01) | DRG 287 ==
LOC: EDBD → ED 10:09 → 4A 12:52
PROVIDERS: ADMIT Internal Medicine; ATTEND Internal Medicine
PROC: 4A023N8 Measurement of Cardiac Sampling and Pressure, Bilateral, Percutaneous Approach (ICD-10-PCS; principal; 2018-10-14)
PROC: B2111ZZ Fluoroscopy of Multiple Coronary Arteries using Low Osmolar Contrast (ICD-10-PCS; 2018-10-14)
PROC: B2151ZZ Fluoroscopy of Left Heart using Low Osmolar Contrast (ICD-10-PCS; 2018-10-14)
DX: I50.23 Acute on chronic systolic (congestive) heart failure (principal); I42.0 Dilated cardiomyopathy; K50.90 Crohn's disease, unspecified, without complications; Z68.28 Body mass index [BMI] 28.0-28.9, adult; E66.9 Obesity, unspecified; D64.9 Anemia, unspecified; I35.0 Nonrheumatic aortic (valve) stenosis; I25.10 Atherosclerotic heart disease of native coronary artery without angina pectoris; I95.9 Hypotension, unspecified; Z71.3 Dietary counseling and surveillance
CPT/HCPCS: 36415; 71045; 71046; 71275; 80048; 80053; 80061; 82550; 82553; 83880; 84439; 84443; 84484; 85014; 85018; 85025; 85379; 85610; 85730; 93005; 93010; 93460; 94760; 96374; G0378; A9270-GY; C1760; C1894; J1644; J1650; J1940; J2060; J2250; J3010; J7040; Q9967